=== PATIENT | male | born 1980 | race Caucasian/White ===

== ENCOUNTER 2019-06-17 08:17 | Day surgery (SDC) | payer OTHER ==
--- NOTE | 2019-05-20 07:20 | History and Physical - [facility] ---
CHIEF COMPLAINT/HISTORY OF CHIEF COMPLAINT: This patient presents with a history of intractable post cervical lumbar laminectomy syndrome along with a spinal infusion system infusing Hydromorphone at 0.873 mg a day. Over the last number of refills pump battery depletion was identified. He is here for pump battery change on an outpatient basis. PAST MEDICAL HISTORY: Noncontributory. PAST SURGICAL HISTORY: Appendectomy, cervical and lumbar spinal infusion pump implant. MEDICATIONS ON ADMISSION: List to be provided. ALLERGIES: None. FAMILY/PSYCHOSOCIAL HISTORY: Family history - Coronary artery disease, and hypertension. SYSTEMS REVIEW: The patient is appropriate in no acute distress. The remainder of the systems review is positive for glasses, headaches, and difficulty sleeping. PHYSICAL EXAMINATION: Height is 6'1", weight is 250. No vital signs. HEENT: Within normal limits. LUNGS: Clear. HEART: Rapid and regular. ABDOMEN: Nontender. MUSCULOSKELETAL: Examination of the musculoskeletal system shows the pump pouch at the left flank. The incision is intact. His underlying pain pattern both neck and low back involving the upper and lower extremities. NEUROLOGIC: Cranial nerves are intact. IMPRESSION: 1. POST CERVICAL AND LUMBAR LAMINECTOMY SYNDROME, ICD-10 CODE M96.1 WITH RADICULOPATHY, ICD-10 CODE M54.12 AND M54.16. 2. IMPLANTED SPINAL OPIOID INFUSION SYSTEM USING HYDROMORPHONE, BATTERY DEPLETION. PLAN: The patient is here on an outpatient basis for pump battery change. The procedure will be considered outpatient, an overnight stay should not be necessary. No perimeter changes will be made. J[facility]BER: [id number] [facility]
--- NOTE | 2019-06-17 06:36 | History and Physical - Ferro ---
CHIEF COMPLAINT/HISTORY OF CHIEF COMPLAINT: This patient with a history of intractable post laminectomy lumbar radiculopathy has a spinal infusion system infusing Hydromorphone. Over the last number of refills battery depletion identified. He is here for pump battery change on an outpatient basis. PAST MEDICAL HISTORY: Noncontributory. PAST SURGICAL HISTORY: Appendectomy and cervical lumbar spinal infusion pump implant. MEDICATIONS ON ADMISSION: List to be provided. ALLERGIES: None. FAMILY/PSYCHOSOCIAL HISTORY: Family history - Coronary artery disease and cancer. SYSTEMS REVIEW: The patient is appropriate in no acute distress. The remainder of the system review is positive for glasses, headaches, and difficulty sleeping. PHYSICAL EXAMINATION: HEENT: Within normal limits. LUNGS: Clear. HEART: Rapid and regular. ABDOMEN: Nontender. MUSCULOSKELETAL: Examination of the musculoskeletal system shows the pump in the left posterior gluteal margin. The incisional site is intact. Bilateral lower extremity functionality is identified, pain pattern across both front and back leg. Ambulation - No assistive device utilized. NEUROLOGIC: Cranial nerves are intact. IMPRESSION: 1. POST LUMBAR LAMINECTOMY SYNDROME, ICD-10 CODE M96.1 WITH RADICULOPATHY, ICD- CODE M54.16 AND M54.17. 2. INTRASPINAL INFUSION DEVICE PROGRAMMABLE PUMP WITH BATTERY DEPLETION. PLAN: The patient is here on an outpatient basis for pump battery change, no parameter changes will be made. The procedure will be considered outpatient. cc: Dr. Kolby Avery JOB NUMBER: [id number] [facility]
[~2019-06-17 08:17] MED LIST: ACETAMINOPHEN 1,000 MG/100 ML BTL IVPB ONE; CEFAZOLIN 1 Gram 1 GM/50 ML BAG IVPB ONE; CEFAZOLIN 2 Gram 2 GM/50 ML BAG IVPB ONE; FAMOTIDINE 20MG TABLET PO ONE; HYDROMORPHONE HCL IV ONE; HYDROMORPHONE PF 2MG/ML AMP 0.008 MG in 0.9 % SODIUM CHLORIDE 10ML VIA 0.996 ML IV ONE; MECLIZINE 25 MG TABLET PO ONE; METOCLOPRAMIDE 10 MG TABLET PO ONE; SODIUM CHLORIDE 0.9% IV ONE
[2019-06-17] MEDS ORDERED: FENTANYL PF 100MCG/2ML VIAL IV ONE (08:18)
[2019-06-17] MEDS ORDERED: PROPOFOL 10 MG/ML VIAL IV ONE (08:18)
[2019-06-17] MEDS ORDERED: HYDROMORPHONE HCL 2 MG/ML VIAL IV ONE (08:18)
[2019-06-17] MEDS ORDERED: LIDOCAINE 2% MDV (20MG/ML) 20ML VIAL IV ONE (08:18)
[2019-06-17] MEDS ORDERED: MIDAZOLAM HCL 2MG/2ML VIAL IV ONE (08:18)
[2019-06-17] MEDS ORDERED: RINGERS SOLUTION,LACTATED 1,000 ML IV ONE ×2 (09:30→11:03)
[2019-06-17] MEDS ORDERED: ACETAMINOPHEN 1,000 MG/100 ML BTL IVPB ONE (09:34)
[2019-06-17] MEDS ORDERED: CEFAZOLIN 1G VIAL IR ONE (10:44)
[2019-06-17] MEDS ORDERED: LIDOCAINE 1% W/EPI 1:100,000 MDV 20 ML VIAL SQ ONE (10:56)
[2019-06-17] MEDS ORDERED: BUPIVACAINE 0.5% W/EPI MPF 30 ML VIAL SQ ONE (10:57)
[2019-06-17] MEDS ORDERED: HYDROCODONE/APAP 7.5/325MG TABLET PO ONE ×2 (11:34→12:06)
--- NOTE | 2019-06-17 13:48 | Operative Note - Ferro ---
DATE OF SURGERY: 06/17/2019 PREOPERATIVE DIAGNOSIS: 1. POST LUMBAR LAMINECTOMY SYNDROME, ICD-10 CODE M96.1 WITH RADICULOPATHY, ICD- 10 CODE M54.16 AND M54.17. 2. IMPLANTED SPINAL OPIOID INFUSION SYSTEM WITH HYDROMORPHONE, BATTERY DEPLETION. OPERATION: 1. FLUOROSCOPICALLY GUIDED INCISION, SUBCUTANEOUS DISSECTION, AND REMOVAL AND REPLACEMENT OF PROGRAMMABLE PUMP 20 ML MEDTRONIC PREFILLED HYDROMORPHONE 25 MG PER ML. 2. INCISION, AND RESECTION OF INDWELLING SPINAL CATHETER AT PUMP POUCH. 3. DIAGNOSTIC MYELOGRAPHY WITH RADIOLOGIC SUPERVISION AND INTERPRETATION. 4. PLACEMENT OF PUMP AND REVISED CATHETER INTO POUCH, CLOSURE OF INCISIONS WITH STRATAFIX SUTURE 2-0 FASCIA AND 3-0 SKIN. DERMABOND CLOSURE. 5. COMPLEX PROGRAMMING OF PUMP TO DELIVER BY CONTINUOUS INFUSION ORIGINAL PARAMETERS HYDROMORPHONE 25 MG PER ML. SURGEON: Antolin Hernandez D.O. ANESTHESIA: Local sedation. ANESTHESIA PROVIDER: Louis Jimenez CRNA INDICATION: This patient presents with a history of an intractable post lumbar laminectomy radiculopathy. A spine infusion in place using Hydromorphone. Over the last number of refills has been identified as battery depletion. He is here for pump battery change with refill. PROCEDURE: Intravenous line, vital sign monitoring, IV sedation. Prepped and draped, sterile technique. The patient was positioned prone. Sterile prep at the left posterior gluteal margin pump pouch, skin infiltrated, incision made, and subcutaneous dissection was conducted to the pump Dacron sleeve which is opened, the pump was then exteriorized and from the indwelling catheter. During the process the internal catheter within the pouch was identified having what appeared to be a layer of the pump catheter which seemed to show a defect which was identified under further visualization as a superficial layer of the catheter which had come off the catheter itself. It was felt appropriate to resect this component out and replace it. At that point a new pump catheter component was placed onto the field, placed antibiotic irrigation along with the connector. The indwelling catheter was then cut slightly distal to this defect and a new catheter segment was then interfaced with the indwelling spinal catheter component removing the defect completely. A new 20 ml programmable pump prefilled Hydromorphone 20 ml was then 20 mg per ml was then placed onto the field and interfaced with the revised catheter. With the pump on the field a curved Malik needle was inserted into the access port and 1 ml of catheter contents was aspirated clearing the catheter of opioid and CSF mixture. The pump and catheter resection was then placed into the pouch after antibiotic irrigation and Bovie for hemostasis performed. It was secured to the posterior fascia with one single Ethibond suture through a pump eyelet. With the pump into the pouch the curved Malik needle was inserted into access port and contrast was injected. The resulting myelogram with radiologic supervision and interpretation showed contrast moving through the catheter tip at approximately T11. Appropriate flow characteristics were noted. Contrast was seen moving through the pump, moving through the pump catheter connection, there were no kinks, leaks or abnormal findings. Pump catheter functionality was then confirmed. With the pump secured into the pouch the incision was closed, two interrupted Ethibond's were used to close the Dacron sleeve and then Stratafix suture 2-0 fascia and 3-0 skin was then used to close the incision. Dermabond closure was placed. His pump was then programmed back to the original parameters without changes made. He was then transported to the Recovery Room stable. No side effects from the procedures or sedation. Full functionality noted. No unusual side effects. He was prepared for discharge. DISCHARGE INSTRUCTIONS: 1. The sites are to remain clean and dry. No showering or bathing in any way that would disrupt the dressings, if it happens contact the clinic. 2. Standard medications resumed including the antibiotic Levaquin, he will take 500 mg once a day for fourteen days. 3. Office to contact the patient in 12-24 hours to set up a time in 7-10 days for us to evaluate the incisions, until then he is to keep his activities low. All other instructions were provided. numbers to contact if problems given. Spinal opioid side effects such as respiratory depression, nausea, vomiting, constipation, and urinary retention have all been reviewed. JOB [facility]BER: [id number] [facility]
== END 2019-06-17 12:08 | disposition home or self-care (01) ==
LOC: SUR 08:17
PROVIDERS: ATTEND Pain Medicine Interventional Pain Medicine
DX: M96.1 Postlaminectomy syndrome, not elsewhere classified (principal); M54.16 Radiculopathy, lumbar region; M54.17 Radiculopathy, lumbosacral region; Z45.1 Encounter for adjustment and management of infusion pump; I10 Essential (primary) hypertension; Z68.41 Body mass index [BMI] 40.0-44.9, adult
CPT/HCPCS: 62350; 62362; 01936; 62367; 36416; 82948; C1755; Q9967; C1772; J3010; J0690 ×2; J1170; J7120